=== PATIENT | female | born 1960 | race Caucasian/White ===

== ENCOUNTER 2019-02-05 08:00 | Outpatient (CLI) | payer MEDICAID ==
[2014-09-29 11:03] VITALS: BMI 25.0
[~2019-02-05 08:00] MED LIST: CELEXA20 MG PO; HYZAAR 50-12.51 TAB PO
== END 2019-02-05 08:01 | disposition home or self-care (01) ==
LOC: D.MRI 08:00
PROVIDERS: ATTEND Family Medicine
DX: E03.9 Hypothyroidism, unspecified (principal)